=== PATIENT | female | born 1965 | race Hispanic/Latino ===

== ENCOUNTER 2020-08-23 11:04 | Outpatient (CLI) | payer OTHER ==
--- NOTE | 2020-08-23 12:24 | XRay Report ---
CERVICAL SPINE 4 VIEWS INDICATION: Neck pain. COMPARISON: None. IMPRESSION: Normal alignment. No acute osseous or soft tissue abnormality. 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 The facet joints are unremarkable. LUMBOSACRAL SPINE 3 VIEW INDICATION: Back pain. COMPARISON: None. IMPRESSION: There is mild dextro curvature to the lumbar spine on the frontal image. Normal alignmen t on the lateral image. Moderate discogenic DJD is noted at L3-4. Mild diffuse facet arthropathy is evident which is most pronounced at L3-4. The SI joints are unremarkable. No acute osseous or soft t issue abnormality. BILATERAL HIPS WITH PELVIS 3 VIEWS INDICATION: BILATERAL HIP PAIN. COMPARISON: None. IMPRESSION: No acute osseous or soft tissue abnormality. There appear to be chronic healed fractures involving both inferior pelvic rami, correlate with history. There is normal articulation at both h ips. No significant DJD. Signer Name: Iron Ovalle Jr, MD Signed: 08/23/2020 12:19 PM Workstation Name: [id number]
== END 2020-08-23 11:05 | disposition home or self-care (01) ==
LOC: XRAY 11:04
PROVIDERS: ATTEND Internal Medicine
DX: M47.812 Spondylosis without myelopathy or radiculopathy, cervical region (principal); M47.816 Spondylosis without myelopathy or radiculopathy, lumbar region; M51.36 Other intervertebral disc degeneration, lumbar region; M25.551 Pain in right hip; M25.552 Pain in left hip
CPT/HCPCS: 72040; 72100; 73521